=== PATIENT | male | born 1985 | race Caucasian/White ===

== ENCOUNTER → 2021-05-30 | Outpatient (CLI) | payer MEDICAID, SELFPAY ==
--- NOTE | 2021-05-30 10:10 | VAS_PTH ---
PATIENT: HOLLIS CARABALLO LOC: [facility] U#:[id number] AGE/SX: 35/M ROOM: RE05/30/[address]: Dr. Gil Mensah MD : [id number] BED: DIS: 05/30/2021 SPEC #: [id number] RECD: 05/30/21 11:17 STATUS: LAITH REMadi #: [id number] CHANELL: 05/30/21 10:[address]: Gil Mensah DEPT: SURGICAL PATHOLOGY RECD BY: Elena Pruett ENTERED: 05/30/21 12:41 SP TYPE: VAS OTHR DR: Dr. Checo Devine, DO Tissues: A - Vas deferens, NOS B - Vas deferens, NOS Procedures: Surgery Specimen Level II HEADER OPERATION: Bilateral partial vasectomy PRE-OP DIAGNOSIS: Sterilization TISSUE SUBMITTED: A ? Left vas deferens, B ? Right vas deferens MICROSCOPIC DIAGNOSIS A. Left vas deferens, partial vasectomy: Completely transected segment of vas deferens, no pathologic diagnosis. B. Right vas deferens, partial vasectomy: Completely transected segment of vas deferens, no pathologic diagnosis. KATIA:katheryn 06/02/2021 MICROSCOPIC DESCRIPTION Slides are reviewed. GROSS DESCRIPTION A - Received is one container designated left vas deferens. The specimen consists of a tubular segment of garcia soft tissue measuring 1 cm in length and 0.2 cm in diameter. The specimen is sectioned and submitted entirely in one cassette. B - Received is one container designated right vas deferens. The specimen consists of a tubular segment of garcia soft tissue measuring 0.6 cm in length and 0.2 cm in diameter. The specimen is sectioned and submitted entirely in one cassette. / KATIA:katheryn 05/30/21 TC:4 [facility]: [id number] [phone]
== END | disposition home or self-care (01) ==
PROVIDERS: PCP Family Medicine; Referring Provider Surgery; Visit Provider Surgery
DX: Z30.2 Encounter for sterilization (principal)
CPT/HCPCS: 88302

== ENCOUNTER → 2021-07-29 11:34 | Outpatient (CLI) | payer MEDICAID, SELFPAY ==
[2021-07-29 13:52] LABS: Semen Analysis Post Vas ABSENT
== END ==
PROVIDERS: PCP Family Medicine; Referring Provider Surgery; Visit Provider Surgery
DX: Z30.2 Encounter for sterilization (principal)
CPT/HCPCS: 89321

== ENCOUNTER → 2022-05-01 | Outpatient (CLI) | payer MEDICAID, SELFPAY ==
[2022-05-01 15:44] LABS: Mucous, Urine 0 SEEN /hpf (<or=2+); Squamous Epithelial Cells - UA 0 SEEN /hpf (0-5); White Blood Cells 0 SEEN /hpf (0-5)
[2022-05-01 16:29] LABS: Color, Urine Yellow (Yellow); Glucose, Dipstick Normal (Normal); Ketone-Dipstick Negative (Negative); Leukocyte Esterase-Dipstick Negative /ul (Negative); Nitrite-Dipstick Negative (Negative); Occult Blood-Urine Negative /ul (Negative); Protein-Dipstick Negative (Negative); Urine Bilirubin Dipstick Negative (Negative); Urine Clarity Clear (Clear); Urine Urobilinogen Normal (Normal)
[2022-05-01 16:39] LABS: Bacteria RARE /hpf (None Seen); Red Blood Cells-Urine 0-5 SEEN /hpf (0-5)
== END | disposition home or self-care (01) ==
LOC: LABSPEC 15:42
PROVIDERS: PCP Family Medicine; Referring Provider Nurse Practitioner Family; Visit Provider Nurse Practitioner Family
DX: R10.9 Unspecified abdominal pain (principal)
CPT/HCPCS: 81001; 87086

== ENCOUNTER → 2023-12-10 | Outpatient (CLI) | payer MEDICAID, SELFPAY ==
[2023-12-10 15:19] LABS: Absolute Lymphocyte Count 1.93 X10^3/uL (0.83-4.51); Absolute Neutrophil Count 3.8 X10^3/uL (2.0-7.7); Basophil# 0.07 X10^3/uL; Basophil% 0.9 % (0-1); Eosinophil# 1.75 X10^3/uL; Eosinophils% 21.6 % (0-5); Hematocrit 42.2 % (40-54); Hemoglobin 14.1 g/dL (13.0-16.5); Lymphocyte # 1.93 X10^3/ul (0.83-4.51); Lymphocyte % 23.8 % (19-41); Mean Corp Hgb Conc 33.4 g/dL (32-36); Mean Corpuscular Hgb 28.4 pg (27.0-32.0); Mean Corpuscular Volume 85.1 fL (80-94); Mean Platelet Vol. 10.9 fl (6.2-12.0); Monocyte# 0.53 X10^3/uL; Monocyte% 6.5 % (0-10); NRBC Flagged by Analyzer 0 % (0-5); Neutrophil # 3.82 X10^3/uL (2.7-7.7); Platelet Count 275 K/mm3 (150-450); RBC Distribution Width SD 40.1 fl (35.1-43.9); Red Blood Count 4.96 M/mm3 (4.6-6.2); White Blood Count 8.1 K/mm3 (4.4-11.0)
== END | disposition home or self-care (01) ==
LOC: MTLAB 12:51
PROVIDERS: PCP Family Medicine; Referring Provider Physician Assistant; Visit Provider Physician Assistant
DX: R10.13 Epigastric pain (principal)
CPT/HCPCS: 36415; 85025

== ENCOUNTER → 2025-02-05 | Outpatient (CLI) | payer MEDICAID, SELFPAY ==
--- OUTSIDE RECORDS SUMMARY | 2025-02-05 08:01 | XMS RPT_ITS | CCD ---
Author Organization [facility] Care Team Providers Care Veneer Clipper Name Role Phone Dr. Checo Devine Primary Care Provider Dr. Checo Devine Referring Provider KALEB Lindquist Attending Provider [phone] Pablo Booth Attending Unavailable Checo Devine Referring Unavailable Checo Devine Primary Care Unavailable Louie Lindquist Attending Unavailable Checo Devine Referring Unavailable Checo Devine Primary Care Unavailable Selena MANUEL, Louie Attending Unavailable Selena MANUEL, Louie Referring Unavailable Checo Devine Primary Care Unavailable Dr. Checo Devine DO Primary Care Provider Dr. Checo Devine DO Referring Provider [phone] Nicolas Grant Attending Provider Medications Current Medications Medication Drug Class(es) Dates Sig (Normalized) Sig (Original) amoxicillin 500 mg oral tablet (1 source) Penicillin-class Antibacterial Start: 02-04-2025 take 1 tablet by mouth every twelve hours Amoxicillin 500 mg tablet Active 500 mg PO Q12H 20 February 04, 2025 12:00am February 13, 2025 12:00am montelukast 10 mg oral tablet (5 sources) Leukotriene Receptor Antagonist Start: 04-21-2024 take 1 tablet by mouth once daily in the evening Montelukast (Singulair) 10 mg tablet Active 10 mg PO EVERY EVENING April 21, 2024 12:00am Start: 04-07-2019 End: 12-10-2023 take 1 tablet by mouth once daily in the evening Montelukast 10 mg tablet Discontinued 10 mg PO EVERY EVENING April 09, 2021 10:49am December 10, 2023 11:15am Completed/Discontinued Medications Medication Drug Class(es) Dates Sig (Normalized) Sig (Original) acetaminophen 300 mg / codeine phosphate 15 mg oral tablet (2 sources) Opioid Agonist Start: 05-30-2021 End: 05-01-2022 Acetaminophen-Codei ne 300-15 mg tablet Discontinued 1 {tbl} PO EVERY 6 HOURS as needed for pain May 30, 2021 12:00am May 01, 2022 2:58pm Start: 05-30-2021 End: 05-01-2022 take 1 tablet by mouth every six hours Acetaminophen-Codeine Discontinued 1 TABLET PO EVERY 6 HOURS May 30, 2021 12:00am May 01, 2022 2:58pm cetirizine hydrochloride 10 mg oral tablet (2 sources) Histamine-1 Receptor Antagonist Start: 12-10-2023 End: 04-21-2024 take 1 tablet by mouth once daily as needed Cetirizine 10 mg tablet Discontinued 10 mg PO DAILY as needed December 10, 2023 12:00am April 21, 2024 5:26pm famotidine 20 mg oral tablet (2 sources) Histamine-2 Receptor Antagonist Start: 12-10-2023 End: 04-21-2024 take 1 tablet by mouth twice daily Famotidine (Pepcid) 20 mg tablet Discontinued 20 mg PO TWICE A DAY December 10, 2023 12:00am April 21, 2024 5:26pm levocetirizine dihydrochloride 5 mg oral tablet (2 sources) Histamine-1 Receptor Antagonist Start: 04-20-2018 End: 04-09-2021 take 1 tablet by mouth at bedtime as needed Levocetirizine (Xyzal) 5 mg tablet Discontinued 5 mg PO AT BEDTIME as needed for allergy symptoms April 20, 2018 12:00am April 09, 2021 10:42am loratadine 10 mg oral tablet (4 sources) Start: 04-20-2018 End: 12-10-2023 take 1 tablet by mouth once daily as needed Loratadine (Claritin) 10 mg tablet Discontinued 10 mg PO DAILY as needed June 30, 2018 10:14am December 10, 2023 11:15am LORazepam 2 mg oral tablet (2 sources) Benzodiazepine Start: 04-29-2021 End: 05-30-2021 take 1 tablet by mouth every two hours as needed for anxiety Lorazepam (Ativan) 2 mg tablet Discontinued 2 mg PO As Directed as needed for anxiety April 29, 2021 12:00am May 30, 2021 10:09am Please take 1 tab PO 2 hrs prior to procedure pantoprazole 40 mg delayed release oral tablet (2 sources) Proton Pump Inhibitor Start: 12-10-2023 End: 04-21-2024 take 1 tablet by mouth once daily Pantoprazole 40 mg tablet,delayed release (DR/EC) Discontinued 40 mg PO DAILY December 10, 2023 12:00am April 21, 2024 5:26pm triamcinolone acetonide 0.055 mg/actuat metered dose nasal spray (2 sources) Corticosteroid Start: 04-09-2021 End: 05-01-2022 Triamcinolone Acetonide (Nasacort Allergy) 55 mcg aerosol,spray Discontinued 1 NMA INTRANASAL DAILY April 09, 2021 12:00am May 01, 2022 2:58pm administer into each nostril Start: 04-09-2021 End: 05-01-2022 take 1 spray(s) nasal route once daily Triamcinolone Acetonide (Nasacort Allergy) 55 mcg aerosol,spray Discontinued 1 SPRAY INTRANASAL DAILY April 09, 2021 12:00am May 01, 2022 2:58pm administer into each nostril Problems Problem Classification Problem Date Documented Date Episodic/Chronic Abdominal pain (6 sources) Left flank pain; Translations: [Unspecified abdominal pain] Onset: 12-21-2023 05-01-2022 Episodic Contraceptive and procreative management (2 sources) Contraception status; Translations: [Encounter for sterilization] 04-09-2021 Episodic Other upper respiratory disease (2 sources) Seasonal allergic rhinitis; Translations: [Other seasonal allergic rhinitis] 04-20-2018 Chronic Other upper respiratory infections (2 sources) Pharyngitis; Translations: [Acute pharyngitis, unspecified] 02-04-2025 Episodic Results Test Name Value Interpretation Reference Range Facility Urgent Care Visit Reporton 0 04-21-2024 Urgent Care Visit Report [facility] [address], [address] [place] [address] OFFICE VISIT Date of Service: 04/21/24 MR#: [id number] Acct: [id number] Name: HOLLIS CARABALLO Rep #: [id number] : 1985 Provider: KALEB Villa Age/Sex: 38/M Location: [facility] Status: Signed Intake Vital Signs 12/10/23 11:05 04/21/24 17:25 Height 5 ft 11 in Weight: 175 lb BMI 24.4 BP 102/68 116/58 L Blood Pressure Location Rt brachial Lt brachial Position Sitting Sitting Respiration 159 H 4 L Pulse 92 78 Pulse Source NIBP NIBP Temp 99.5 F H 98.5 F Temp Source Temporal Temporal Pulse Oximetry (%) 100 98 Oxygen Delivery Method room air room air Intake Visit Reasons: ALLERGIES Chief Complaint: sneezing, itchy eyes Outside Sales Inspector Required: No Is patient in pain?: No Allergies No Known Allergies Allergy (Verified 04/21/24 17:26) Medications ???Medication ???Instructions ???Recorded ???Confirmed ???Type montelukast 10 mg tablet 10 mg PO QPM #30 tabs 04/21/24 04/21/24 Rx (Singulair) Have you fallen in the past year?: No Nurse's Note: sneezing, itchy eyes x 3 months. has environmental allergies, medications not helping. had an montelukast at home, took that yesterday and had great relief. requesting RX for that med. declines covid testing [facility] Medical History Acute left flank pain Seasonal allergic rhinitis Family History Grandfather Myocardial infarction Dementia Social History Smoking Status: Never smoker alcohol intake: never substance use type: does not use what type of physical activity do you participate in: none HPI HPI Chief Complaint: sneezing, itchy eyes Details: HOLLIS CARABALLO, is a 38 M who presents to the office today for complaint of sneezing, itching eyes for the past 3 months. Patient states he has typical environmental allergies however has not been able to get his Singulair. He states that in the past singular has helped quite a bit. He denies fever, chills, sweats. No nausea, vomiting, diarrhea. No hemoptysis, shortness of breath or difficulty breathing. No loss of taste or smell. No other associated symptoms or alleviating/aggravat ing factors. ROS Const Constitutional: No other (6 system ROS completed with pertinent findings in the HPI otherwise normal.) Exam Const General: cooperative and well developed HENNY Head: normal to inspection and atraumatic Ears: hearing grossly normal bilaterally Nose: nasal discharge clear Face and sinus: normal facial exam Mouth: oral mucosae normal Throat: abnormal tonsil bilaterally hypertrophy 1+ Resp Effort Inspection: normal respiratory effort and no audible wheezes Auscultation: Bilateral: Clear to Auscultation Cardio Palpation: normal PMI Rate: regular rate Rhythm: regular rhythm Neuro General: patient alert and CN's II-XI intact bilaterally Psych Appearance: grossly normal Mental Status: mental status grossly normal Coding Level of Care Code Off vis,new,level 3 Diagnoses Seasonal allergic rhinitis J30.2 Assessment and Plan Assessment and Plan (1) Seasonal allergic rhinitis: Status: Chronic Medications: New montelukast (Singulair) 10 mg PO QPM 30 tabs 3RF Plan Singulair as prescribed today. Encouraged to get plenty of rest, drink lots of clear liquids, and use Benadryl for comfort. Patient also educated on other symptomatic management techniques. To be seen in 7-10 days if no improvement; sooner if worsening of symptoms. Patient advised of potential red flags and when appropriate to report to the ED. Patient verbalized understanding and agreement with all the above. Clinical Quality Measures Falls Risk Screening/Assistive Devices Have you fallen in the past year?: No 04/21/24 1751 Date Pablo Moore Signature: Date (if applicable) CC: Normal [facility] Absolute lymphocyte countOrd ered By: Louie Walters on 12-10-2023 Lymphocytes Auto (Unsp spec) [#/Vol] 1.93 10*3/uL 0.83-4.51 [facility] Automated lymphocyte count a s percentage of total leukocytesOrdered By: Louie Walters on 12-10-2023 Lymphocytes/100 WBC Auto (Unsp spec) 23.8 % 19-41 [facility] Basophil percentageOrdered B y: Louie Walters on 12-10-2023 Basophils/100 WBC (Bld) 0.9 % 0-1 [facility] Eosinophils/100 WBC (Bld) 21.6 % 0-5 [facility] Hemoglobin (Bld) [Mass/Vol] 14.1 g/dL 13.0-16.5 [facility] Monocytes/100 WBC (Bld) 6.5 % 0-10 [facility] Neutrophils (Bld) [#/Vol] 3.8 10*3/uL 2.0-7.7 [facility] Neutrophils/100 WBC (Bld) 47.0 % 47-70 [facility] WBC (Bld) [#/Vol] 8.1 10*3/uL 4.4-11.0 [facility] CBC W/Diff, Automatedon 11-15 Absolute Lymph 1.93 X10 3/uL Normal 0.83-4.51 [facility] Comment on above: Performed By: #### L 100.0100 #### [facility] [address] [place], [address] Absolute Neut 3.8 X10 3/uL Normal 2.0-7.7 [facility] Comment on above: Performed By: #### L 100.0100 #### [facility] [address] [place], [address] Basophils/100 WBC (Bld) 0.9 % Normal 0-1 [facility] Comment on above: Performed By: #### L 100.0100 #### [facility] [address] [place], [address] Eosinophils/100 WBC (Bld) 21.6 % High 0-5 [facility] Comment on above: Performed By: #### L 100.0100 #### [facility] [address] [place], [address] Erythrocyte distribution width (RBC) [Ratio] 13.0 % Normal 11.6-14.6 [facility] Comment on above: Performed By: #### L 100.0100 #### [facility] [address] [place], [address] Hematocrit (Bld) [Volume fraction] 42.2 % Normal 40-54 [facility] Comment on above: Performed By: #### L 100.0100 #### [facility] [address] [place], [address] Hemoglobin (Bld) [Mass/Vol] 14.1 g/dL Normal 13.0-16.5 [facility] Comment on above: Performed By: #### L 100.0100 #### [facility] [address] [place], [address] IG% 0.200 Normal 0.0-0.9 [facility] Comment on above: Result Comment: IG% - Immature Granulocytes (promyelocytes, myelocytes and metamyelocytes) > 1% indicates that a LEFT SHIFT is Present. Performed By: #### L 100.0100 #### [facility] [address] [place], [address] Lymphocytes/100 WBC (Bld) 23.8 % Normal 19-41 [facility] Comment on above: Performed By: #### L 100.0100 #### [facility] [address] [place], [address] MCH (RBC) [Entitic mass] 28.4 pg Normal 27.0-32.0 [facility] Comment on above: Performed By: #### L 100.0100 #### [facility] [address] [place], [address] MCHC (RBC) [Mass/Vol] 33.4 g/dL Normal 32-36 [facility] Comment on above: Performed By: #### L 100.0100 #### [facility] [address] [place], [address] MCV (RBC) [Entitic vol] 85.1 fL Normal 80-94 [facility] Comment on above: Performed By: #### L 100.0100 #### [facility] [address] [place], [address] Monocytes/100 WBC (Bld) 6.5 % Normal 0-10 [facility] Comment on above: Performed By: #### L 100.0100 #### [facility] [address] [place], [address] Neutrophils/100 WBC (Bld) 47.0 % Normal 47-70 [facility] Comment on above: Performed By: #### L 100.0100 #### [facility] [address] [place], [address] Nucleated RBC (Bld) [#/Vol] 0 10*3/uL Normal 0-5 [facility] Comment on above: Performed By: #### L 100.0100 #### [facility] [address] [place], [address] Platelet mean volume (Bld) [Entitic vol] 10.9 fL Normal 6.2-12.0 [facility] Comment on above: Performed By: #### L 100.0100 #### [facility] [address] [place], [address] Platelets (Bld) [#/Vol] 275 10*3/uL Normal 150-450 [facility] Comment on above: Performed By: #### L 100.0100 #### [facility] [address] [place], [address] RBC (Bld) [#/Vol] 4.96 10*6/uL Normal 4.6-6.2 [facility] Comment on above: Performed By: #### L 100.0100 #### [facility] [address] [place], [address] RDW SD 40.1 fl Normal 35.1-43.9 [facility] Comment on above: Performed By: #### L 100.0100 #### [facility] [address] [place], [address] WBC (Bld) [#/Vol] 8.1 10*3/uL Normal 4.4-11.0 [facility] Comment on above: Performed By: #### L 100.0100 #### [facility] [address] [place], [place], [address] Determination of erythrocyte mean corpuscular volume (MCV)Ordered By: Louie Walters on 12-10-2023 MCV (RBC) [Entitic vol] 85.1 fL 80-94 [facility] Erythrocyte distribution wid th ratioOrdered By: Louie Walters on 12-10-2023 Erythrocyte distribution width (RBC) [Ratio] 13.0 % 11.6-14.6 [facility] Erythrocyte distribution wid th standard deviationOrdered By: Louie Walters on 12-10-2023 Erythrocyte distribution width (RBC) [Entitic vol] 40.1 fL 35.1-43.9 [facility] Hematocrit Auto (Bld) [Volum e fraction]Ordered By: Louie Walters on 12-10-2023 Hematocrit (Bld) [Volume fraction] 42.2 % 40-54 [facility] Immature granulocytes/100 WB C Auto (Bld)Ordered By: Louie Walters on 12-10-2023 Immature granulocytes/100 WBC (Bld) 0.200 % 0.0-0.9 [facility] Comment on above: IG% - Immature Granu locytes (promyelocytes, myelocytes and metamyelocytes) > 1% indicates that a LEFT SHIFT is Present. Internal Medicine Office Vis betty 12-10-2023 Internal Medicine Office Visit [facility] [address] [place], [place] [address] OFFICE VISIT Date of Service: 12/10/23 MR#: [id number] Acct: [id number] Name: HOLLIS CARABALLO Rep #: [id number] : 1985 Provider: KALEB Ramachandran Age/Sex: 38/M Location[place] [facility] Status: Signed Intake Vital Signs 05/01/22 14:53 12/10/23 11:05 Height 5 ft 11 in 5 ft 11 in Weight: 175 lb BMI 24.4 BP 102/68 Blood Pressure Location Rt brachial Position Sitting Respiration 159 H Pulse 92 Pulse Source NIBP Temp 99.5 F H Temp Source Temporal Pulse Oximetry (%) 100 Oxygen Delivery Method room air Intake Visit Reasons: CONCERN FOR ULCER Chief Complaint: abdominal pain Allergies No Known Allergies Allergy (Unverified 05/01/22 14:58) Medications cetirizine 10 mg tablet 10 mg PO DAILY PRN 12/10/23 [History Confirmed 12/10/23] famotidine 20 mg tablet (Pepcid) 20 mg PO BID #10 tabs 12/10/23 [Rx Confirmed 12/10/23] pantoprazole 40 mg tablet,delayed release 40 mg PO DAILY #30 tabs 12/10/23 [Rx Confirmed 12/10/23] Nurse's Note: epigastric pain after eating x 2 weeks worsening. can only tolerate plain oatmeal at this point. pain lasts 3-4 hours resolving on its own. denies n/v/d. pt concerned for ulcer PFSH Medical History Acute left flank pain Seasonal allergic rhinitis Family History Grandfather Myocardial infarction Dementia Social History Smoking Status: Never smoker alcohol intake: never substance use type: does not use what type of physical activity do you participate in: none HPI HPI Chief Complaint: abdominal pain Details: HOLLIS CARABALLO, is a 38 M who presents to the office today for upper abdominal discomfort for the past 2 to 3 weeks. Patient states that he had an episode where he felt sick and ended up having a few episodes of emesis. He states that he only had 1 day of this and it was just a few times and nothing since then however he has had some issues with some epigastric pain probably an hour or so after he eats anything. He states that he just sort of get sick to his stomach and again has that discomfort. Patient states that he has not had any persistent diarrhea at the same time has had 2-3 bouts of loose stool over the past few weeks. Patient does drink some caffeine although not a large quantity. He has not noticed any type of nicotine and has not used any type of alcohol. He states he really is not having any type of stress that he can think of. He states that his energy level is pretty good and is sleeping okay. He is not having any other symptoms that he can recall. Exam Const General: cooperative, healthy appearing, comfortable, no acute distress, well developed and well groomed Nutritional Appearance: average body habitus and well nourished Orientation: alert, awake and oriented x3 Neck Neck: full ROM and no lymphadenopathy Resp Effort Inspection: normal respiratory effort, able to speak in complete sentences, symmetric chest movement, normal respiratory pattern, no audible wheezes and no cough Auscultation: Bilateral: Clear to Auscultation Cardio Rate: regular rate Rhythm: regular rhythm Heart Sounds: S1 normal and S2 normal GI Inspection: normal to inspection, no edema and non-distended Auscultation: normal bowel sounds Palpation: soft, no hepatosplenomegaly, not firm, no guarding and tender in the epigastrum; not periumbilically, Huerta's sign negative and with no rebound tenderness Skin Rashes: no rashes Neuro General: patient alert, patient awake and patient oriented x3 Gait: normal gait Coding Level of Care Code Off vis,est,level 3 Diagnoses Epigastric abdominal pain R10.13 Assessment and Plan Assessment and Plan (1) Epigastric abdominal pain: Status: Acute Plan: Patient presents the office today for 2 to 3-week history of some mild epigastric discomfort along with some nausea after eating. Patient states that this all started after he got sick to his stomach and had an episode of vomiting. He states that this only occurred that day and was just a few times and he has not had any episodes of vomiting since then. He states though that after he eats something approximately an hour or so later that he just gets a discomfort in the middle of the upper abdomen and therefore does not feel like eating. He states that this occurs with most meals and has not seen it specific with certain food. Once again patient does not really have any major risk factors as he does not consume any type of nicotine products, use alcohol at all, has no real significant stress at this point, and uses very minimal caffeine. He is a very healthy 38-year-old male with no underlying (more content not included)... Normal [facility] - Hematology and Cell countsOrdered By: Louie Walters on 12-10-2023 MCH (RBC) [Entitic mass] 28.4 pg 27.0-32.0 [facility] MCHC (RBC) [Mass/Vol] 33.4 g/dL 32-36 [facility] Nucleated RBC/100 WBC (Bld) [Ratio] 0 % 0-5 [facility] Platelet mean volume (Bld) [Entitic vol] 10.9 fL 6.2-12.0 [facility] Platelets (Bld) [#/Vol] 275 10*3/uL 150-450 [facility] RBC Auto (Bld) [#/Vol]Ordere d By: Louie Walters on 12-10-2023 RBC (Bld) [#/Vol] 4.96 10*6/uL 4.6-6.2 [facility] Vital Signs Date Time Vital Sign Value Performing Clinician Josh gaming 02-04-2025 09:51-0400 Body height 180.[address] Checo Devine DO Work Phone: [facility] 02-04-2025 09:51-0400 Body mass index (BMI) [Ratio] 25.7 kg/m2 Dr. Checo Devine DO Work Phone: [facility] 02-04-2025 09:51-0400 Body temperature 98.2 [degF] Dr. Checo Devine DO Work Phone: [facility] 02-04-2025 09:51-0400 Body weight 83.[address] Checo Devine DO Work Phone: [facility] 02-04-2025 09:51-0400 Diastolic blood pressure 60 mm[Hg] Dr. Checo Devine DO Work Phone: [facility] 02-04-2025 09:51-0400 Heart rate 85 /min Dr. Checo Devine DO Work Phone: [facility] 02-04-2025 09:51-0400 Respiratory rate 16 /min Dr. Checo Devine DO Work Phone: [facility] 02-04-2025 09:51-0400 SaO2% (BldA) [Mass fraction] 98 % Dr. Checo Devine DO Work Phone: [facility] 02-04-2025 09:51-0400 Systolic blood pressure 100 mm[Hg] Dr. Checo Devine DO Work Phone: [facility] 12-10-2023 11:05-0400 Body height 180.[address] Checo Devine Work Phone: [facility] 12-10-2023 11:05-0400 Body mass index (BMI) [Ratio] 24.4 kg/m2 Dr. Checo Devine Work Phone: [facility] 12-10-2023 11:05-0400 Body temperature 99.5 [degF] Dr. Checo Devine Work Phone: [facility] 12-10-2023 11:05-0400 Body weight 79.[address] Checo Devine Work Phone: [facility] 12-10-2023 11:05-0400 Diastolic blood pressure 68 mm[Hg] Dr. Checo Devine Work Phone: [facility] 12-10-2023 11:05-0400 Heart rate 92 /min Dr. Checo Devine Work Phone: [facility] 12-10-2023 11:05-0400 Respiratory rate 159 /min Dr. Checo Devine Work Phone: [facility] 12-10-2023 11:05-0400 SaO2% (BldA) [Mass fraction] 100 % Dr. Checo Devine Work Phone: [facility] 12-10-2023 11:05-0400 Systolic blood pressure 102 mm[Hg] Dr. Checo Devine Work Phone: [facility] Encounters Encounter Date Encounter Type Care Provider Facility Start: 02-04-2025 End: 02-04-[address] Cehco Devine DO Work Phone: [facility] Work Phone: Start: 02-04-2025 End: 02-04-2025 Patient encounter procedure [facility] Work Phone: Start: 04-21-2024 End: 04-21-2024 ambulatory Pablo MANUEL [place] Start: 12-10-2023 End: 12-10-[address] Checo Devine Work Phone: [facility] Work Phone: Start: 12-10-2023 End: 12-10-[address] Checo Devine Work Phone: [facility] Work Phone: Start: 12-10-2023 End: 12-10-[address] Checo Devine Work Phone: [facility] Work Phone: Start: 12-10-2023 End: 12-10-2023 ambulatory Louie MANUEL [place] Start: 12-10-2023 End: 12-10-2023 ambulatory Louie MANUEL Facility:[facility] Plan of Treatment Date Care Activity Detail Author Helicobacter pylori Ag [Presence] in Stool by Immunoassay [facility] Measurement of occul t blood in stool specimen using immunoassay [facility] Payers Date Payer Category Payer Medicaid [id number] 2023 Self-pay [id number] Unknown [id number] Unknown [id number] Unknown [id number] Unknown [id number] Social History Date Type Detail Facility Start: 05-01-2022 Tobacco smoking stat [facility] Unknown if ever smoked [facility] Start: 1985 Sex Assigned At Male W [facility] Start: 05-01-2022 [facility] Progress note 02-04-2025 Note Date & Type Note Facility 02-04-2025 Progress note [facility] Progress note 02-04-2025 Note Date & Type Note Facility 02-04-2025 Progress note Note Date/Time February 04, 2025 10:37am [facility] [address], [address] [place] [address] OFFICE VISIT Date of Service: 02/04/25 MR#: [id number] Acct: [id number] Name: HOLLIS CARABALLO Rep #: [id number] : 1985 Provider: DALLIN Masters Age/Sex: 39/M Location[place] [facility] Status: Signed Intake Vital Signs 12/10/23 11:05 02/04/25 09:51 Height 5 ft 11 in 5 ft 11 in Weight: 184 lb 6 oz BMI 25.7 BP 100/60 Position Sitting Respiration 16 Pulse 85 Temp 98.2 F Temp Source Oral Pulse Oximetry (%) 98 Oxygen Delivery Method room air Intake Visit Reasons: SORE THROAT Accompanied by: Self Allergies No Known Allergies Allergy (Verified 02/04/25 09:59) Medications ?Medication ?Instructions ?Recorded ?Confirmed ?Type montelukast 10 mg tablet 10 mg PO QPM #30 tabs 02/04/25 Rx (Singulair) amoxicillin 500 mg tablet 500 mg PO Q12H 10 days #20 t abs 02/04/25 02/04/25 Rx Nurse's Note: Patient has a ST that has been bothering him since yesterday. Patient states that its getting worse. Patient states its hard to swallow. Patient looked at his throat and said she saw white spots. [facility] Medical History Acute left flank pain Seasonal allergic rhinitis Family History Grandfather Myocardial infarction Dementia Social History Smoking Status: Never smoker alcohol intake: never substance use type: does not use what type of physical activity do you participate in: none HPI HPI Details: HOLLIS CARABALLO, is a 39 M who presents to the office today. The patient is a 39-year-old male presenting with a sore throat and white spots on the tonsils. The sore throat started yesterday and has worsened, causing difficulty swallowing. A rapid strep test was negative. The patient has seasonal allergic rhinitis, managed with Singulair and Claritin.He denies fever, chills, or body aches. He has GERD, managed with famotidine, which may irritate the throat but not cause white spots. - General: Denies fever, chills, or body aches - ENT: Reports sore throat with difficulty swallowing, white spots on tonsils - Respiratory: Denies cough or shortness of breath - Gastrointestinal: Denies nausea, vomiting, diarrhea, or loose stools - Genitourinary: Denies urinary symptoms - Dermatological: Denies new skin rashes - Musculoskeletal: Denies new joint pain - Vital Signs: Blood pressure 100/60 mmHg, pulse 85 bpm, respiratory rate 16 breaths/min, temperature 98.2?F, oxygen saturation 98% on room air - Cardiovascular: Regular rate and rhythm, no murmurs, rubs, or gallops - Respiratory: Clear to auscultation bilaterally - Ears: No signs of infection, both ears appear normal - Nose: Dry, no rhinorrhea observed - Throat: Tonsils not enlarged, mild erythema with white spots on left tonsil - Rapid strep test: Negative Assessment and Plan The patient is a 39-year-old male with a history of seasonal allergic rhinitis and GERD, presenting with a sore throat and white spots on the tonsils. The sorethroat began yesterday and has worsened, with difficulty swallowing and negativerapid strep test results. The differential diagnosis includes viral pharyngitis and bacterial pharyngitis, with consideration for strep throat despite negative rapid test results. The patient's seasonal allergic rhinitis is managed with Singulair and Claritin,and he experiences plugged ears due to allergies. GERD is managed with famotidine, which may contribute to throat irritation but not the white spots observed. Attestation: Documentation on this patient encounter was supported using ambient scribe technology/ voice AI technology. The patient consented to recording for the purpose of documenting the encounter. Provider reviewed content of the generatednote prior to signature. ROS Const Constitutional: No body ache, chills, fatigue, fever(s), headache(s) or change in appetite Eyes Eyes: No blurry vision, change in vision, double vision, irritation, discharge, vision loss, dry eyes, bulging eyes, floaters, visual disturbances, eye pain, Light sensitivity, spots in vision, tunnel vision or other ENT ENT: Positive for sore throat (constant); No ear or mastoid pain, ear discharge, ear pressure, tinnitus, dizziness/vertigo, nosebleed/epistaxis, nasal congestion, nose pain, sinus pressure, sinus pain, nasal discharge, post nasal drip, headache(s), facial pain, dental pain, difficulty swallowing, bad breath, hoarseness, lip swelling, mouth lesions, mouth pain, neck pain, tongue swelling or throat swelling Resp Respiratory: No cough, change in phlegm color, chest congestion, hemoptysis, pain on inspiration, shortness of breath, pain with cough, stridor or wheezing Cardio Cardiology: No chest pain at rest, chest pain with exertion, shortness of breath, dyspnea on exertion or lightheadedness Gastro GI: No abdominal pain, change in bowel habits or difficulty swallowing Genitourinary Male: No burning urination or urinary frequency Musc Musculoskeletal: No joint pain or neck pain Skin Skin: No rash Neuro Neurology: No headache(s) or visual disturbances Psych Psychiatric: No change in appetite Endo Endocrine: No fatigue Aller/Imm Allergy/Immunologic: No lip swelling, throat swelling, tongue swelling or wheezing Exam Const General: cooperative, healthy appearing, comfortable and no acute distress Orientation: alert, awake and oriented x3 HENMT Head: normal to inspection and normocephalic Ears: hearing grossly normal bilaterally, external ears normal and TM's normal bilaterally Nose: external nose normal, nares normal and no nasal discharge Face and sinus: normal facial exam and sinuses nontender Mouth: oral mucosae normal, lip normal, tongue normal, oropharynx normal and moist mucous membranes Throat: uvula midline, abnormal tonsil bilaterally erythema and exudates (left),posterior oropharynx abnormal erythema and no postnasal drainage Eyes General: appearance normal, both eyes and all related structures Neck Neck: normal visual inspection and no lymphadenopathy Carotids: normal carotid upstroke Lymphatic: no lymphadenopathy noted Chest Chest palpation & inspection: normal inspection of the chest Resp Effort & Inspection: normal respiratory effort, able to speak in complete sentences, symmetric chest movement, no cough and no stridor Auscultation: Bilateral: Clear to Auscultation Cardio Rate: regular rate Rhythm: regular rhythm Heart Sounds: S1 normal, S2 normal and no murmurs GI Inspection: normal to inspection Auscultation: normal bowel sounds Palpation: soft Skin General: no rashes or lesions noted Neuro Speech: speech normal Extrem General: normal to inspection and capillary refill normal Coding Level of Care Code Off vis,est,level 3 Diagnoses Pharyngitis, unspecified etiology J02.9 Pharyngitis/tonsillitis etiology: unspecified etiology Assessment and Plan Assessment and Plan (1) Pharyngitis: Status: Acute Qualifiers: Pharyngitis/tonsillitis etiology: unspecified etiology Qualified Code(s): J02.9 - Acute pharyngitis, unspecified Plan: Will send out for culture. He opted to begin antibiotic as we wait. If it comes back negative, will stop PCN. If positive, will complete full course. OTC options for allergies and sore throat reviewed. Encouraged to get plenty of rest, drink lots of clear liquids, and use Tylenol or Ibuprofen (unless contraindicated) for fever and comfort. Patient also educated on other symptomatic management techniques. To be seen in 7-10 days if no improvement; sooner if worsening of symptoms.? Patient advised of potential red flags and when appropriate to report to the ED.? Patient verbalized understanding and agreement with all the above. 1. Sore Throat With White Spots On Tonsils - Consider viral versus bacterial pharyngitis. - Start amoxicillin if bacterial infection confirmed. - Perform throat culture. 2. Seasonal Allergic Rhinitis - Continue Singulair and consider antihistamine - Add nasal steroid spray and saline spray if needed. 3. Gastroesophageal Reflux Disease (Gerd) - Continue famotidine as needed. Orders: Orders POC Rapid Strep A Today J02.9 - Acute pharyngitis, unspecified Medications: New amoxicillin 500 mg PO Q12H 10 days 20 tabs 0RF Clinical Quality Measures Pharyngitis Group A strep test performed: Yes 02/04/25 1037 <Electronically signed by Nicolas Masters N P PROP SAWYER-C> Date _ Nicolas Masters NP PROP SAWYER-C Cosigner Signature: Date (if applicable) CC: Dr. Checo Devine, ~ [facility] Work Phone: Evaluation note Note Date & Type Note Facility Evaluation note Diagnosis Onset Date Epigastric abdominal pain [facility] Work Phone: Evaluation note Note Date & Type Note Facility Evaluation note Diagnosis Onset Date Resolution Pharyngitis acute February 04 9:33am [facility] Work Phone: Reason for referral (narrative) Note Date & Type Note Facility Reason for referral (narrative) No reason for referral information available [facility] Work Phone: Chief Complaint and Reason for Visit Chief Complaint CONCERN FOR ULCER EORDERS Reason for Visit Epigastric abdominal pain Chief Complaint Admit Date SORE THROAT February 04, 2025 9:33 am Reason for Visit Admit Date Pharyngitis February 04, 2025 9:33 am Family History Relationship Condition Age at Onset Recorded Date/T smitha grandfather Myocardial infarction Unknown Dementia Unknown Summary Purpose Advance Directives No Advanced Directives Records Found Additional Source Comments Care Teams (unrecognized sec tion and content) Team Status: Active Member Role Status Dates Dr. Checo Devine DO Family Provider Active Dr. Checo Devine DO Primary Care Provider Active Team Status: Inactive Member Role Status Dates Dr. Checo Devine , DO Primary Care Provider, Referr ing Provider Active KALEB Farrar Attending Provider Active Team Status: Inactive Member Role Status Dates Dr. Checo Devine , DO Primary Care Provider Active KALEB Farrar Attending Provider, Referring Prov ider Active Team Status: Inactive Member Role Status Dates Dr. Checo Devine , DO Primary Care Provider Active Start: February 04, 2025 End: February 04, 2025 Dr. Checo Devine , DO Referring Provider Active Start: February 04, 2025 End: February 04, 2025 Nicolas Masters PROP SAWYER, PROP SAWYER-C Attending Provider Active S tart: February 04, 2025 End: February 04, 2025 Goals (unrecognized section and content) Goals may be documented in a n alternate sectionGoals may be documented in an alternate section (unrecognized sect ion and content) No Status Records Found INFORMATION SOURCE (unrecogn ized section and content) DATE CREATED AUTHOR 04/23/2024 [facility] FOR RECORDS PERTAINING TO PATIENTS WHO ARE OR HAVE BEEN ENROLLED IN A CHEMICAL DEPENDENCY/SUBSTANCEABUSE PROGRAM, SOME INFORMATION MAY BE OMITTED. This clinical summary was aggregated from multiple sources. Caution should be exercised in using it in the provision of clinical care. This summary normalizes information from multiple sources, and as a consequence, information in this document may materially change the coding, format and clinical context of patient data. In addition, data may be omitted in some cases. CLINICAL DECISIONS SHOULD BE BASED ON THE PRIMARY CLINICAL RECORDS. [employer] [facility]. provides no warranty or guarantee of the accuracy or completeness of information in this document.
== END | disposition home or self-care (01) ==
LOC: LABSPEC 07:37
PROVIDERS: PCP Family Medicine; Visit Provider Nurse Practitioner Family
DX: J02.9 Acute pharyngitis, unspecified (principal)
CPT/HCPCS: 87070